=== PATIENT | male | born 1965 | race Caucasian/White ===

== ENCOUNTER 2016-10-24 04:54 | Emergency (ER) | payer OTHER ==
[~2016-10-24] VITALS: Ht 185.4 cm; Wt 127.5 kg
[~2016-10-24 04:54] MED LIST: ASPI81TA9 PO; HYDR-963 PO; IBUP800T PO; METO25TA4 PO; TAMS0.4C97 PO
--- NOTE | 2016-10-24 05:00 | ED.ADGEN ---
Past History Past Medical History: No Pertinent History, Hypertension Past Surgical History: Other Smoking: Cigarettes Alcohol Use: None Drug Use: None Adult General Chief Complaint Chief Complaint ". I am having a lot more PVC's again... I had this before... they said lay off the caffeine and the cigarettes and eating... I ve had negative stress test...I seen Dr. Aly and Dr. Giron before.. the only thing is I get worried... because my father ... and uncle had cardiac problems when they where in there 70 's... I ve been trying to quit smoking but I am a artist model.. and if I am busy.. fine.. but if it is slow.. I start smoking heavy..." HPI HPI Patient is a 51 year old male who presents with above hx and complaints. Patient has had frequent PVCs in the past. Prior ultrasounds and stress tests have been negative. Patient has follow up ultrasound. Patient does follow with . Patient does have a history of hypertension. Patient does smoke. Past has been advised to cut down on his intake of caffeine particularly his heavy use of Mountain Dew. Does have a history of coronary artery disease age 70's and father and uncle. Review of Systems Review of Systems Constitutional: Denies fever or chills [] Eyes: Denies change in visual acuity, redness, or eye pain [] HENT: Denies nasal congestion or sore throat [] Respiratory: Denies cough or shortness of breath [] Cardiovascular: No additional information not addressed in HPI [] GI: Denies abdominal pain, nausea, vomiting, bloody stools or diarrhea [] : Denies dysuria or hematuria [] Musculoskeletal: Denies back pain or joint pain [] Integument: Denies rash or skin lesions [] Neurologic: Denies headache, focal weakness or sensory changes [] Endocrine: Denies polyuria or polydipsia [] Family History Family History History of coronary artery disease Current Medications Current Medications Current Medications Medications (Trade) Dose Ordered Sig/[facility] Start Time Stop Time Status Last Admin Dose Admin Aspirin 324 mg 324 mg 1X ONCE 10/24/16 05:30 10/24/16 05:31 DC 10/24/16 05:30 324 MG Lactated Ringer's (Iv Lactated Ringers) 1,000 ml @ 1,000 mls/hr Q1H 10/24/16 05:30 10/24/16 05:51 1,000 MLS/HR See nursing for home meds Allergies Allergies Allergies Coded Allergies Type Severity Reaction Last Updated Verified No Known Drug Allergies 07/21/15 No Physical Exam Physical Exam Constitutional: no acute distress, non-toxic appearance. [] HENT: Normocephalic, atraumatic, bilateral external ears normal, oropharynx moist, no oral exudates, nose normal. [] Eyes: PERRLA, EOMI, conjunctiva normal, no discharge. [] Neck: Normal range of motion, no tenderness, supple, no stridor. [] Cardiovascular:Heart rate regular rhythm, no murmur , occasional PVC per monitor Lungs & Thorax: Bilateral breath sounds equal at apexes with scattered wheezes on auscultation [] Abdomen: Bowel sounds normal, soft, no tenderness, no masses, no pulsatile masses. Obese Skin: Warm, dry, no erythema, no rash. Tattoos Back: No tenderness, no CVA tenderness. [] Extremities: No tenderness, no cyanosis, no clubbing, ROM intact, no edema. [] No Cording noted Neurologic: Alert and oriented X 3, normal motor function, normal sensory function, no focal deficits noted. [] Psychologic: Affect anxious, judgement normal, mood normal. [] Current Patient Data Vital Signs Vital Signs Date Time Temp Pulse Resp B/P Pulse Ox O2 Delivery O2 Flow Rate FiO2 10/24/16 05:00 97.7 85 20 95 Room Air Lab Results Laboratory Tests Test 10/24/16 05:15 10/24/16 06:25 White Blood Count 8.7x10^3/uL (4.0-11.0) Red Blood Count 4.53x10^6/uL (4.30-5.70) Hemoglobin 15.6g/dL (13.0-17.5) Hematocrit 44.8% (39.0-53.0) Mean Corpuscular Volume 99fL (79-100) Mean Corpuscular Hemoglobin 34pg (25-35) Mean Corpuscular Hemoglobin Concent 35g/dL (31-37) Red Cell Distribution Width 13.3% (11.5-14.5) Platelet Count 191x10^3/uL (140-400) Neutrophils (%) (Auto) 59% (31-73) Lymphocytes (%) (Auto) 27% (24-48) Monocytes (%) (Auto) 10% (0-9) H Eosinophils (%) (Auto) 3% (0-3) Basophils (%) (Auto) 1% (0-3) Neutrophils # (Auto) 5.1x10^3uL (1.8-7.7) Lymphocytes # (Auto) 2.4x10^3/uL (1.0-4.8) Monocytes # (Auto) 0.8x10^3/uL (0.0-1.1) Eosinophils # (Auto) 0.3x10^3/uL (0.0-0.7) Basophils # (Auto) 0.1x10^3/uL (0.0-0.2) Prothrombin Time 10.0SEC (9.4-11.4) Prothrombin Time INR 1.0 (0.9-1.1) PTT 26SEC (23-33) Sodium Level 142mmol/L (136-145) Potassium Level 3.8mmol/L (3.5-5.1) Chloride Level 106mmol/L (98-107) Carbon Dioxide Level 25mmol/L (21-32) Anion Gap 11 (6-14) Blood Urea Nitrogen 15mg/dL (8-26) Creatinine 1.2mg/dL (0.7-1.3) Estimated GFR (Cockcroft-Gault) 63.6 Glucose Level 104mg/dL (70-99) H Calcium Level 8.7mg/dL (8.5-10.1) Magnesium Level 2.0mg/dL (1.8-2.4) Total Bilirubin 0.3mg/dL (0.2-1.0) Direct Bilirubin 0.1mg/dL (0.0-0.2) Aspartate Amino Transferase (AST) 18U/L (15-37) Alanine Aminotransferase (ALT) 44U/L (16-63) Alkaline Phosphatase 95U/L (46-116) Creatine Kinase 86U/L (39-308) Creatine Kinase MB (Mass) 0.8ng/mL (0.0-3.6) Creatine Kinase MB Relative Index 0.9% (0-4) Troponin I Quantitative < 0.017ng/mL (0-0.055) UI-Ckw-B-Type Natriuretic Peptide 62pg/mL (0-124) Total Protein 6.9g/dL (6.4-8.2) Albumin 3.6g/dL (3.4-5.0) Urine Collection Type Unknown Urine Color Yellow Urine Clarity Clear Urine pH 6.0 Urine Specific Benson <=1.005 Urine Protein Neg (NEG-TRACE) Urine Glucose (UA) Negmg/dL (NEG) Urine Ketones (Stick) Negmg/dL (NEG) Urine Blood Neg (NEG) Urine Nitrite Neg (NEG) Urine Bilirubin Neg (NEG) Urine Urobilinogen Dipstick 0.2mg/dL (0.2 mg/dL) Urine Leukocyte Esterase Neg (NEG) Urine RBC 0/HPF (0-2) Urine WBC 0/HPF (0-4) Urine Squamous Epithelial Cells None/LPF Urine Bacteria 0/HPF (0-FEW) Urine Opiates Screen Neg (NEG) Urine Methadone Screen Neg (NEG) Urine Barbiturates Neg (NEG) Urine Phencyclidine Screen Neg (NEG) Urine Amphetamine/Methamphetamine Neg (NEG) Urine Benzodiazepines Screen Neg (NEG) Urine Cocaine Screen Neg (NEG) Urine Cannabinoids Screen Pos (NEG) Urine Ethyl Alcohol Neg (NEG) EKG EKG I interpretation of EKG shows a sinus rhythm at 73 bpm. Does have occasional atrial premature complex. Does have an occasional PVC. There is some nonspecific anterior lateral changes but no findings acute STEMI of contralateral changes. [] Radiology/Procedures Radiology/Procedures I interpretation of chest x-ray shows no acute cardiopulmonary findings thus. Some basilar atelectasis [] Course & Med Decision Making Course & Med Decision Making Pertinent Labs and Imaging studies reviewed. (See chart for details). Stress presentation, testing and treatment plan with patient and . He will attempt to stop smoking. Will reduce caffeine intake. Continue aspirin and his maintenance meds. Will follow-up primary care. Follow-up cardiology. Return if any concerns. [] Final Impression Final Impression 1. Complaints of dysrhythmia-PVCs 2. History of hypertension 3. Tobacco use [] Problems: Dragon Disclaimer Dragon Disclaimer This electronic medical record was generated, in whole or in part, using a voice recognition dictation system. JULIO CERON MD Oct 24, 2016 05:00
[2016-10-24 05:28] LABS: BASO # 0.1 x10^3/uL (0.0-0.2); BASO % 1 % (0-3); EOS # 0.3 x10^3/uL (0.0-0.7); EOS % 3 % (0-3); HEMATOCRIT 44.8 % (39.0-53.0); HEMOGLOBIN 15.6 g/dL (13.0-17.5); LYMPH # 2.4 x10^3/uL (1.0-4.8); LYMPH % 27 % (24-48); MEAN CORPUSCULAR HEMOGLOBIN 34 pg (25-35); MEAN CORPUSCULAR HGB CONC 35 g/dL (31-37); MEAN CORPUSCULAR VOLUME 99 fL (79-100); MONO # 0.8 x10^3/uL (0.0-1.1); MONO % 10 % (0-9); NEUT # 5.1 x10^3uL (1.8-7.7); NEUT % 59 % (31-73); PLATELET COUNT 191 x10^3/uL (140-400); RED BLOOD COUNT 4.53 x10^6/uL (4.30-5.70); RED CELL DISTRIBUTION WIDTH 13.3 % (11.5-14.5); WHITE BLOOD COUNT 8.7 x10^3/uL (4.0-11.0)
[2016-10-24] MEDS ORDERED: IV RINGERS SOLUTION,LACTATED 1,000 ML IV SCH (05:30)
[2016-10-24] MEDS ORDERED: ASPIRIN 81 MG TAB.CHEW PO ONE (05:30)
[2016-10-24 05:49] LABS: ALBUMIN 3.6 g/dL (3.4-5.0); CALCIUM 8.7 mg/dL (8.5-10.1); CREATININE 1.2 mg/dL (0.7-1.3); DIRECT BILIRUBIN 0.1 mg/dL (0.0-0.2); GFR 63.6; POTASSIUM 3.8 mmol/L (3.5-5.1); TOTAL BILIRUBIN 0.3 mg/dL (0.2-1.0); TOTAL PROTEIN 6.9 g/dL (6.4-8.2)
--- NOTE | 2016-10-24 06:03 | EKG ---
[address] [address] Test Date: 2016-10-24 Test Time: 05:03:56 Pat Name: MYESHA BOONE Department: Room: Gender: M Lpn Per Diem: QUINN : 1965 Requested By: JULIO CERON Order Number: [id number] Reading MD: Measurements Intervals [place] Rate: 73 P: 32 VA: 188 QRS: 33 QRSD: 82 T: 0 QT: 366 QTc: 407 Interpretive Statements SINUS RHYTHM ATRIAL PREMATURE COMPLEX(ES) QRS(T) CONTOUR ABNORMALITY CONSIDER ANTEROLATERAL MYOCARDIAL DAMAGE POSSIBLY ABNORMAL ECG RI6.01 Unconfirmed report No previous ECG available for comparison
[2016-10-24 06:45] VITALS: BP 111/87
[2016-10-24 06:52] LABS: BARBITURATES NEG (NEG); BENZODIAZEPINES NEG (NEG); CANNABINOIDS POS (NEG); COCAINE NEG (NEG); METHADONE NEG (NEG); OPIATES NEG (NEG); PHENCYCLIDINE NEG (NEG)
[2016-10-24 06:53] LABS: AMPHETAMINE/METHAMPHETAMINE NEG (NEG); BACTERIA,URINE 0 /HPF (0-FEW); BILIRUBIN,URINE NEG (NEG); CLARITY,URINE CLEAR; COLOR,URINE YELLOW; GLUCOSE,URINE NEG (NEG); NITRITE,URINE NEG (NEG); RBC,URINE 0 /HPF (0-2); UROBILINOGEN,URINE 0.2 mg/dL (0.2 mg/dL); WBC,URINE 0 /HPF (0-4)
--- NOTE | 2016-10-24 07:10 | RAD ---
Chest, 2 views, 10/24/2016: History: Chest discomfort, shortness of breath Comparison is made to a study from 07/20/2016. The heart size is normal. The lungs are clear. There is no evidence of pleural fluid. IMPRESSION: No acute cardiopulmonary abnormality is detected.
[2016-10-24 13:29] LABS: THYROID STIM HORMONE (TSH) 3.431 uIU/mL (0.358-3.740)
== END 2016-10-24 06:54 | disposition home or self-care (01) ==
LOC: ER 05:04
DX: I49.3 Ventricular premature depolarization (principal); I10 Essential (primary) hypertension; F17.210 Nicotine dependence, cigarettes, uncomplicated
CPT/HCPCS: 36415; 71020; 80048; 80061; 80076; 80305; 81001; 82553; 83735; 83880; 84443; 84484; 85027; 85610; 85730; 93005; 96360; 99285; J7120; G0481

== ENCOUNTER → 2017-10-08 | Outpatient (CLI) | payer OTHER ==
[~2017-10-08] MED LIST changes: +ASPI-612 PO; -ASPI81TA9 PO; -IBUP800T PO; +IBUP800T19 PO
--- NOTE | 2017-10-08 14:51 | RAD ---
Right shoulder, 3 views, 10/08/2017: History: Shoulder pain No fracture or dislocation is identified. The periarticular soft tissues are unremarkable. IMPRESSION: No acute right shoulder abnormality is detected. Lumbar spine, 5 views, 10/08/2017: History: Fall, pain No fracture or dislocation is identified. The intervertebral disc spaces are well-maintained. There is minimal sclerotic change involving lower lumbar facet joints. Moderate aortic calcific plaquing is present. There is a mass in the lower pole the left kidney, apparently representing a known renal cyst. IMPRESSION: No acute lumbar spine abnormality is detected.
--- NOTE | 2017-10-09 08:47 | RAD ---
Right shoulder, 3 views, 10/08/2017: History: Shoulder pain No fracture or dislocation is identified. The periarticular soft tissues are unremarkable. IMPRESSION: No acute right shoulder abnormality is detected. Lumbar spine, 5 views, 10/08/2017: History: Fall, pain No fracture or dislocation is identified. The intervertebral disc spaces are well-maintained. There is minimal sclerotic change involving lower lumbar facet joints. Moderate aortic calcific plaquing is present. There is a mass in the lower pole the left kidney, apparently representing a known renal cyst. IMPRESSION: No acute lumbar spine abnormality is detected. DICTATED AND SIGNED BY: NERI MENDENHALL MD DATE: 10/08/17 1444 MTDD
== END | disposition home or self-care (01) ==
LOC: DXRAD 11:37
PROVIDERS: ATTEND Family Medicine
DX: M54.5 Low back pain (principal); M25.511 Pain in right shoulder; N28.1 Cyst of kidney, acquired; I70.0 Atherosclerosis of aorta; Z91.81 History of falling
CPT/HCPCS: 72110; 73030

== ENCOUNTER 2017-10-15 20:22 | Emergency (ER) | payer OTHER ==
[~2017-10-15] VITALS: Ht 185.4 cm; Wt 120.2 kg
[2017-10-15 20:22] VITALS: BP 141/79
--- NOTE | 2017-10-15 20:24 | ED.ADGEN ---
Past History Past Medical History: No Pertinent History, Hypertension Past Surgical History: Other Smoking: Cigarettes Alcohol Use: None Drug Use: Marijuana Adult General Chief Complaint Chief Complaint " I tripped over the cat...".. " [place]".. and went down on this Lt. hand and did something to this Lt finger..." HPI HPI Patient is a 52 year old male who presents with above hx and complaints FOOSH type injury to left hand. Patient's pain is localized in the left 5th finger and hand. Is obvious fracture at the base of fifth finger. Distal neurovascular intact. Capillary refill less than 2 seconds. Patient Is able to flex and extend but there is pain at the base of the finger . No other injuries reported. There is obvious edema. Patient is right-hand dominant. Fat [place] was not injured. Review of Systems Review of Systems Constitutional: Denies fever or chills [] Eyes: Denies change in visual acuity, redness, or eye pain [] HENT: Denies nasal congestion or sore throat [] Respiratory: Denies cough or shortness of breath [] Cardiovascular: No additional information not addressed in HPI [] GI: Denies abdominal pain, nausea, vomiting, bloody stools or diarrhea [] : Denies dysuria or hematuria [] Musculoskeletal: Denies back pain or joint pain, except [left fifth finger fracture Integument: Denies rash or skin lesions [] Neurologic: Denies headache, focal weakness or sensory changes [] Endocrine: Denies polyuria or polydipsia [] All other systems were reviewed and found to be within normal limits, except as documented in this note. Family History Family History Noncontributory Current Medications Current Medications Current Medications Medications (Trade) Dose Ordered Sig/[facility] Start Time Stop Time Status Last Admin Dose Admin Hydrocodone Bitartrate/ Ibuprofen (Vicoprofen 7.5-200) 2 tab 1X ONCE 10/15/17 21:00 10/15/17 21:01 DC 10/15/17 21:20 2 TAB Allergies Allergies Allergies Coded Allergies Type Severity Reaction Last Updated Verified No Known Drug Allergies 07/21/15 No Physical Exam Physical Exam Constitutional: Well developed, well nourished, no acute distress, non-toxic appearance. []Glasses HENT: Normocephalic, atraumatic, bilateral external ears normal, oropharynx moist, no oral exudates, nose normal. [] Eyes: PERRLA, EOMI, conjunctiva normal, no discharge. [] Neck: Normal range of motion, no tenderness, supple, no stridor. [] Cardiovascular:Heart rate regular rhythm, no murmur [] Lungs & Thorax: Bilateral breath sounds equal apex with scattered wheezes on auscultation [] Abdomen: Bowel sounds normal, soft, no tenderness, no masses, no pulsatile masses. [] Skin: Warm, dry, no erythema, no rash. [] Back: No tenderness, no CVA tenderness. [] Extremities: No tenderness, no cyanosis, no clubbing, ROM intact, no edema. [] Septic findings in the left fifth finger as per history of present illness Neurologic: Alert and oriented X 3, normal motor function, normal sensory function, no focal deficits noted. [] Psychologic: Affect normal, judgement normal, mood normal. [] Current Patient Data Vital Signs Vital Signs Date Time Temp Pulse Resp B/P (MAP) Pulse Ox O2 Delivery O2 Flow Rate FiO2 10/15/17 20:22 97.9 95 20 95 Room Air EKG EKG [] Radiology/Procedures Radiology/Procedures My interpretation of hand x-ray shows fracture o left fifth finger. Post gentle traction shows some and improved alignment with siena tape splint. Course & Med Decision Making Course & Med Decision Making Pertinent Labs and Imaging studies reviewed. (See chart for details). Gentle traction. Splint applied. Distal neurovascular intact after splint application Ice, elevation, rest, splint, and take Tylenol and ibuprofen for pain for marked pain take Vicoprofen. Do not place rings on left hand. Follow-up orthopedics. [] Final Impression Final Impression 1. Lt hand Injury[]- fractured base left fifth finger Problems: Dragon Disclaimer Dragon Disclaimer This electronic medical record was generated, in whole or in part, using a voice recognition dictation system. JULIO CERON MD Oct 15, 2017 20:24
[2017-10-15] MEDS ORDERED: HYDR-79 PO (20:48)
[2017-10-15] MEDS ORDERED: HYDROcodon/IBUPROFEN 7.5/200MG 1 TAB TABLET PO ONE (21:00)
--- NOTE | 2017-10-16 08:12 | RAD ---
Left hand, 3 views, 10/15/2017: History: Fall, pain, swelling There is a slightly comminuted fracture of the proximal aspect of the proximal phalanx of the little finger. There is mild impaction of the fracture fragments at the fracture site moderate dorsal and mild ulnar angulation of the distal fracture fragment. A fracture line appears to involve the proximal articular surface of the proximal phalanx. No other fracture or dislocation is identified. IMPRESSION: Angulated fracture of the proximal phalanx of the little finger.
--- NOTE | 2017-10-16 08:15 | RAD ---
Left hand, 3 views, 10/15/2017, 8:55 PM: History: Post splint evaluation Comparison is made to the study of earlier the same day. The comminuted fracture of the proximal aspect of the proximal phalanx of the little finger is again noted. Dorsal angulation of the distal fracture fragment at the fracture site has been reduced. There is a tiny radiopaque foreign body within the soft tissues along the ulnar and palmar aspects of the fifth metacarpal which is unchanged and may be old. IMPRESSION: Improved alignment of the proximal phalangeal fracture of the little finger.
== END 2017-10-15 21:30 | disposition home or self-care (01) ==
LOC: ER 20:22
DX: S62.617A Displaced fracture of proximal phalanx of left little finger, initial encounter for closed fracture (principal); I10 Essential (primary) hypertension; F17.210 Nicotine dependence, cigarettes, uncomplicated; F12.10 Cannabis abuse, uncomplicated; W01.0XXA Fall on same level from slipping, tripping and stumbling without subsequent striking against object, initial encounter; Y93.89 Activity, other specified; Y99.8 Other external cause status; Y92.89 Other specified places as the place of occurrence of the external cause
CPT/HCPCS: 29130; 73130; 99284

== ENCOUNTER → 2018-11-04 | Outpatient (CLI) | payer SELFPAY ==
[~2018-11-04] MED LIST changes: +HYDR-1179 PO; +HYDR-3136 PO; -HYDR-963 PO
--- NOTE | 2018-11-04 15:01 | RAD ---
DATE: 11/04/2018 EXAM: DIGITAL DIAGNOSTIC BILATERAL, BREAST LEFT HISTORY: Left breast lump COMPARISON: Baseline study This study was interpreted with the benefit of Computerized Aided Detection (CAD). Breast Density: SCATTERED The breast parenchyma shows scattered fibroglandular densities. Breast parenchyma level B. FINDINGS: A BB was placed over the area of palpable concern in the lateral left breast. No underlying mass is seen. No suspicious breast densities or calcifications are identified in either breast. Moderate sized right axillary lymph nodes are noted demonstrating normal fatty denice. Left breast ultrasound, 11/04/2018: A targeted ultrasound exam of the left breast was performed from the 3:00 to the 6:00 regions, including the area of reported concern at 4:00. Fibroglandular shadows are heterogeneous. No mass or abnormal fluid collection is seen. The patient reports that the area of palpable concern has been regressing. IMPRESSION: 1. No mammographic abnormality is detected. 2. The targeted ultrasound exam of the left breast revealed no specific abnormality. Clinical surveillance is suggested. BI-RADS CATEGORY: 1 NEGATIVE RECOMMENDED FOLLOW-UP: CLIN FOLLOW UP IMAGING CLINICALLY INDICATED PQRS compliance statement: Patient information was entered into a reminder system with a target due date for the next mammogram. Mammography is a sensitive method for finding small breast cancers, but it does not detect them all and is not a substitute for careful clinical examination. A negative mammogram does not negate a clinically suspicious finding and should not result in delay in biopsying a clinically suspicious abnormality. "Our facility is accredited by the [employer] [place] Mammography Program."
== END | disposition home or self-care (01) ==
LOC: MAMMO 13:19
PROVIDERS: ATTEND Physician Assistant
DX: R92.8 Other abnormal and inconclusive findings on diagnostic imaging of breast (principal)
CPT/HCPCS: 76641; 77066

== ENCOUNTER 2019-01-14 08:43 | Emergency (ER) | payer SELFPAY ==
[2019-01-14] MEDS ORDERED: IV NORMAL SALINE 1,000ML 1,000 ML IV SCH (08:54)
[2019-01-14] MEDS ORDERED: ONDANSETRON PF 4 MG/2 ML VIAL. IV ONE ×2 (09:00→12:30)
[2019-01-14 09:13] LABS: BASO # 0.1 x10^3/uL (0.0-0.2); BASO % 1 % (0-3); EOS # 0.2 x10^3/uL (0.0-0.7); EOS % 2 % (0-3); HEMATOCRIT 48.7 % (39.0-53.0); LYMPH # 1.5 x10^3/uL (1.0-4.8); LYMPH % 17 % (24-48); MEAN CORPUSCULAR HEMOGLOBIN 34 pg (25-35); MEAN CORPUSCULAR HGB CONC 35 g/dL (31-37); MEAN CORPUSCULAR VOLUME 97 fL (79-100); MONO # 0.8 x10^3/uL (0.0-1.1); MONO % 9 % (0-9); NEUT # 6.6 x10^3uL (1.8-7.7); NEUT % 73 % (31-73); PLATELET COUNT 286 x10^3/uL (140-400); RED BLOOD COUNT 5.02 x10^6/uL (4.30-5.70); RED CELL DISTRIBUTION WIDTH 13.1 % (11.5-14.5)
--- NOTE | 2019-01-14 09:21 | PHYS DOC ---
Past History Past Medical History: High Cholesterol, Hypertension Past Surgical History: Other Smoking: Cigarettes Alcohol Use: None Drug Use: Marijuana Adult General Chief Complaint Chief Complaint: ABDOMINAL PAIN HPI HPI Patient is a 53 year old male who presents with lower abdominal pain. Patient states that his symptoms started 5 days ago and have progressively worsened. States his pain became constant today. States it is sharp and severe. States that he has not been able to urinate or pass much stool since onset of symptoms. Has history of kidney stones and is concerned that it could be a kidney stone. Patient also has documented history of diverticulitis. States that he has nausea but no vomiting and has not had any fevers. Has not taken any medicine today for symptoms.[] Review of Systems Review of Systems Constitutional: Denies fever or chills [] Eyes: Denies change in visual acuity, redness, or eye pain [] HENT: Denies nasal congestion or sore throat [] Respiratory: Denies cough or shortness of breath [] Cardiovascular: Denies chest pain or edema[] GI: Abdominal pain, nausea, denies vomiting, bloody stools or diarrhea [] : Oliguria[] Musculoskeletal: Denies back pain or joint pain [] Integument: Denies rash or skin lesions [] Neurologic: Denies headache, focal weakness or sensory changes [] All other systems were reviewed and found to be within normal limits, except as documented in this note. Current Medications Current Medications Current Medications Medications (Trade) Dose Ordered Sig/Brandon Start Time Stop Time Status Last Admin Dose Admin Morphine Sulfate (Morphine 4mg Syringe) 4 mg PRN Q15MIN PRN 01/14/19 09:00 01/15/19 08:59 UNV Ondansetron HCl (Zofran) 4 mg 1X ONCE 01/14/19 09:00 01/14/19 09:01 UNV Sodium Chloride 1,000 ml @ 1,000 mls/hr Q1H 01/14/19 08:54 01/14/19 09:53 UNV Allergies Allergies Allergies Coded Allergies Type Severity Reaction Last Updated Verified No Known Drug Allergies 07/21/15 No Physical Exam Physical Exam Constitutional: Alert, afebrile, appears diaphoretic and in moderate to severe discomfort. [] HENT: Normocephalic, atraumatic, bilateral external ears normal, oropharynx moist, no oral exudates, nose normal. [] Eyes: PERRLA, EOMI, conjunctiva normal, no discharge. [] Neck: Normal range of motion, no tenderness, supple, no stridor. [] Cardiovascular:Heart rate regular rhythm, no murmur [] Lungs & Thorax: Bilateral breath sounds clear to auscultation [] Abdomen: Bowel sounds normal, soft, suprapubic and bilateral lower quadrant tenderness to palpation with mild guarding, no masses, no pulsatile masses. [] Skin: Warm, dry, no erythema, no rash. [] Back: No tenderness, no CVA tenderness. [] Extremities: No tenderness, no cyanosis, no clubbing, ROM intact, no edema. [] Neurologic: Alert and oriented X 3, normal motor function, normal sensory function, no focal deficits noted. [] Current Patient Data Vital Signs Vital Signs Date Time Temp Pulse Resp B/P (MAP) Pulse Ox O2 Delivery O2 Flow Rate FiO2 01/14/19 10:31 24 94 01/14/19 08:50 97.7 87 Room Air Lab Results Laboratory Tests Test 01/14/19 09:04 01/14/19 10:20 White Blood Count 9.0 x10^3/uL Red Blood Count 5.02 x10^6/uL Hemoglobin 17.0 g/dL Hematocrit 48.7 % Mean Corpuscular Volume 97 fL Mean Corpuscular Hemoglobin 34 pg Mean Corpuscular Hemoglobin Concent 35 g/dL Red Cell Distribution Width 13.1 % Platelet Count 286 x10^3/uL Neutrophils (%) (Auto) 73 % Lymphocytes (%) (Auto) 17 % Monocytes (%) (Auto) 9 % Eosinophils (%) (Auto) 2 % Basophils (%) (Auto) 1 % Neutrophils # (Auto) 6.6 x10^3uL Lymphocytes # (Auto) 1.5 x10^3/uL Monocytes # (Auto) 0.8 x10^3/uL Eosinophils # (Auto) 0.2 x10^3/uL Basophils # (Auto) 0.1 x10^3/uL Sodium Level 139 mmol/L Potassium Level 4.3 mmol/L Chloride Level 104 mmol/L Carbon Dioxide Level 24 mmol/L Anion Gap 11 Blood Urea Nitrogen 15 mg/dL Creatinine 1.3 mg/dL Estimated GFR (Cockcroft-Gault) 57.5 BUN/Creatinine Ratio 12 Glucose Level 118 mg/dL Calcium Level 9.5 mg/dL Total Bilirubin 0.3 mg/dL Aspartate Amino Transf (AST/SGOT) 23 U/L Alanine Aminotransferase (ALT/SGPT) 43 U/L Alkaline Phosphatase 90 U/L Total Protein 7.5 g/dL Albumin 3.5 g/dL Albumin/Globulin Ratio 0.9 Urine Collection Type Unknown Urine Color Beatriz Urine Clarity Clear Urine pH 6.0 Urine Specific Zwingle 1.020 Urine Protein Trace Urine Glucose (UA) Neg mg/dL Urine Ketones (Stick) Trace mg/dL Urine Blood Neg Urine Nitrite Neg Urine Bilirubin Neg Urine Urobilinogen Dipstick 0.2 mg/dL Urine Leukocyte Esterase Neg Urine RBC 0 /HPF Urine WBC 0 /HPF Urine Squamous Epithelial Cells Occ /LPF Urine Bacteria 0 /HPF Urine Mucus Marked /LPF Current Medications Medications (Trade) Dose Ordered Sig/Brandon Route PRN Reason Start Time Stop Time Status Last Admin Dose Admin Morphine Sulfate (Morphine 4mg Syringe) 4 mg PRN Q15MIN PRN IV/SQ PAIN GREATER THAN 3/10 01/14/19 09:00 01/15/19 08:59 01/14/19 10:31 Sodium Chloride 1,000 ml @ 1,000 mls/hr Q1H IV 01/14/19 08:54 01/14/19 09:53 DC 01/14/19 09:24 Ondansetron HCl (Zofran) 4 mg 1X ONCE IV 01/14/19 09:00 01/14/19 09:25 DC 01/14/19 09:24 Metronidazole 100 ml @ 100 mls/hr 1X ONCE IV 01/14/19 10:15 01/14/19 11:14 DC Levofloxacin/ Dextrose (Levaquin Per Pharmacy) 1 each PRN DAILY PRN MC SEE COMMENTS 01/14/19 10:15 Levofloxacin/ Dextrose 150 ml @ 150 mls/hr 1X ONCE IV 01/14/19 10:30 01/14/19 11:29 01/14/19 10:34 EKG EKG Not performed[] Radiology/Procedures Radiology/Procedures [address] [address] IMAGING REPORT Signed PATIENT: MYESHA BOONE ACCOUNT: [id number] : 1965 LOCATION: ER AGE: 53 SEX: M EXAM STATUS: REG ER ORD. PHYSICIAN: URSZULA PATEL MD REASON: abdominal pain, hx of kidney stones PROCEDURE: CT ABDOMEN PELVIS WO CONTRAST Examination: CT of the abdomen pelvis without contrast HISTORY: History of abdominal pain, history of renal stones COMPARISON: None available TECHNIQUE: Axial CT images of the abdomen pelvis were performed without contrast. Coronal and sagittal reformats are performed. Exposure: One or more of the following individualized dose reduction techniques were utilized for this examination: 1. Automated exposure control 2. Adjustment of the mA and/or kV according to patient size 3. Use of iterative reconstruction technique FINDINGS: Minimal bibasilar lung atelectasis is identified. Multiple foci of free air identified in the abdomen. The evaluation of the solid organs is limited due to lack of IV contrast. The evaluation of bowel is limited due to lack of oral contrast. There is diffuse decreased attenuation noted in the liver likely hepatic steatosis. The visualized spleen, adrenals grossly appears unremarkable. The gallbladder is mildly distended. The stomach is mildly distended. The visualized pancreas grossly appears unremarkable. Minimal fluid distended small bowel loops. The appendix is normal. Feces and gas noted in the colon. Multiple sigmoid colon diverticulosis. There is moderate inflammatory fat stranding identified about the sigmoid colon likely acute diverticulitis. There is mild thickened appearance of the wall of the urinary bladder with surrounding mild degenerative fat stranding. Punctate 4 mm calculus identified in the right kidney. There is a 7.3 cm cystic structure identified in the left kidney probably a cyst however evaluation limited without IV contrast Mild degenerative changes lumbar spine. IMPRESSION: 1. Pneumoperitoneum. Findings consistent with acute diverticulitis of the sigmoid colon. 2. Moderate inflammatory fat stranding identified about the sigmoid colon and the urinary bladder probably due to underlying sigmoid colon diverticulitis or cystitis. 3. 4 mm right renal calculus. 7.3 cm cystic structure identified in the left kidney probably a cyst. However evaluation limited without IV contrast. informed of the critical findings at 10:25 AM same day exam. Electronically signed by: Abdi Juárez MD (01/14/2019 10:26 AM) [id number] DICTATED AND SIGNED BY: ABDI JUÁREZ MD DATE: 01/14/19 1026 CC: URSZULA PATEL MD; KAYLYNN VALERIO MD ~ [] Course & Med Decision Making Course & Med Decision Making Pertinent Labs and Imaging studies reviewed. (See chart for details) The patient was started on IV morphine, Zofran, and IV fluids. CT imaging confirms acute diverticulitis with pneumoperitoneum. Started on Flagyl and Levaquin IV. Patient requires a higher level of care than can be provided at [facility]. I initially contacted [facility], however they currently do not have any monitored or ICU beds available for the patient at this time and were unable to accept. I contacted [facility] transfer line and spoke with Dr. Loza. Dr. Loza accepted patient for transfer. Patient will be transferred by ground ambulance to [facility]. Spoke patient regarding plan of care and he was in agreement at time of disposition.[] Dragon Disclaimer Dragon Disclaimer This electronic medical record was generated, in whole or in part, using a voice recognition dictation system. Departure Departure: Impression: Primary Impression: Acute diverticulitis Additional Impression: Pneumoperitoneum Disposition: XFER SHT-TRM HOSP Condition: GUARDED Referrals: KAYLYNN VALERIO MD (PCP) Problem Qualifiers URSZULA PATEL MD Jan 14, 2019 09:21
[2019-01-14] MEDS: MORPHINE SULFATE 4 MG/ML DISP.SYRIN. IV/SQ PRN ×2 (09:24→10:31)
[2019-01-14 09:28] LABS: ALBUMIN 3.5 g/dL (3.4-5.0); ALBUMIN/GLOBULIN RATIO 0.9 (1.0-1.7); CALCIUM 9.5 mg/dL (8.5-10.1); CREATININE 1.3 mg/dL (0.7-1.3); GFR 57.5; POTASSIUM 4.3 mmol/L (3.5-5.1); TOTAL BILIRUBIN 0.3 mg/dL (0.2-1.0); TOTAL PROTEIN 7.5 g/dL (6.4-8.2)
--- NOTE | 2019-01-14 10:29 | RAD ---
Examination: CT of the abdomen pelvis without contrast HISTORY: History of abdominal pain, history of renal stones COMPARISON: None available TECHNIQUE: Axial CT images of the abdomen pelvis were performed without contrast. Coronal and sagittal reformats are performed. Exposure: One or more of the following individualized dose reduction techniques were utilized for this examination: 1. Automated exposure control 2. Adjustment of the mA and/or kV according to patient size 3. Use of iterative reconstruction technique FINDINGS: Minimal bibasilar lung atelectasis is identified. Multiple foci of free air identified in the abdomen. The evaluation of the solid organs is limited due to lack of IV contrast. The evaluation of bowel is limited due to lack of oral contrast. There is diffuse decreased attenuation noted in the liver likely hepatic steatosis. The visualized spleen, adrenals grossly appears unremarkable. The gallbladder is mildly distended. The stomach is mildly distended. The visualized pancreas grossly appears unremarkable. Minimal fluid distended small bowel loops. The appendix is normal. Feces and gas noted in the colon. Multiple sigmoid colon diverticulosis. There is moderate inflammatory fat stranding identified about the sigmoid colon likely acute diverticulitis. There is mild thickened appearance of the wall of the urinary bladder with surrounding mild degenerative fat stranding. Punctate 4 mm calculus identified in the right kidney. There is a 7.3 cm cystic structure identified in the left kidney probably a cyst however evaluation limited without IV contrast Mild degenerative changes lumbar spine. IMPRESSION: 1. Pneumoperitoneum. Findings consistent with acute diverticulitis of the sigmoid colon. 2. Moderate inflammatory fat stranding identified about the sigmoid colon and the urinary bladder probably due to underlying sigmoid colon diverticulitis or cystitis. 3. 4 mm right renal calculus. 7.3 cm cystic structure identified in the left kidney probably a cyst. However evaluation limited without IV contrast. informed of the critical findings at 10:25 AM same day exam. Electronically signed by: Abdi Juárez MD (01/14/2019 10:26 AM) [id number]
[2019-01-14 10:46] LABS: BACTERIA,URINE 0 /HPF (0-FEW); BILIRUBIN,URINE NEG (NEG); CLARITY,URINE CLEAR; COLOR,URINE AMBER; GLUCOSE,URINE NEG (NEG); NITRITE,URINE NEG (NEG); RBC,URINE 0 /HPF (0-2); UROBILINOGEN,URINE 0.2 mg/dL (0.2 mg/dL); WBC,URINE 0 /HPF (0-4)
[2019-01-14 10:47] LABS: SQUAMOUS EPITHELIAL CELL,UR OCC /LPF
[2019-01-14 12:28] VITALS: BP 151/87
== END 2019-01-14 12:15 | disposition short-term general hospital (02) ==
LOC: ER 08:43
DX: K57.32 Diverticulitis of large intestine without perforation or abscess without bleeding (principal); K66.8 Other specified disorders of peritoneum; N20.0 Calculus of kidney
CPT/HCPCS: 36415; 74176; 80053; 81001; 85025; 96365; 96367; 96375; 96376; 99285; J1956; J2270; J2405; J3490; J7030

== ENCOUNTER → 2019-08-18 | Outpatient (CLI) | payer BC ==
--- NOTE | 2019-08-18 17:50 | RAD ---
EXAM: Soft tissue ultrasound, perianal soft tissues. HISTORY: Palpable perianal nodule. COMPARISON: None. FINDINGS: Sonographic evaluation of the perianal site of concern was performed. A hypoechoic immediately subcutaneous tract extends from the perianal region to the posterior margin of the scrotum. It measures 5.6 cm in length, and 1.6 x 0.7 cm short axis. A small tract extends to the perianal skin as seen on image 6. IMPRESSION: 1. A subcutaneous tract extends from a perianal skin lesion 5.6 cm anteriorly to the posterior scrotum. It measures 1.6 x 0.7 cm short axis. Electronically signed by: Chantal Reed MD (08/18/2019 5:47 PM) [facility]
== END | disposition home or self-care (01) ==
LOC: US 15:10
PROVIDERS: ATTEND Family Medicine
DX: L98.8 Other specified disorders of the skin and subcutaneous tissue (principal)
CPT/HCPCS: 76881

== ENCOUNTER → 2019-11-25 | Outpatient (CLI) | payer BC ==
--- NOTE | 2019-11-26 08:40 | RAD ---
MR#: [id number] Date of Study: 11/25/2019 Ordering Physician: SANG GIRON, Referring Physician: SANG GIRON, Tech: Estefanía Lopez RVT,[facility] APPROVED REPORT Patient Location: OUT-PATIENT Indications Claudication: Grayscale images of the bilateral lower extremity arterial vessels demonstrate mild diffuse intimal h yperplasia and calcification. On the right side based on spectral waveforms and velocities the proxi mal to mid SFA is occluded with monophasic waveforms distally. Right below-knee vessels have severel y diminished velocities likely due to proximal obstruction but there is three-vessel runoff. On the left side no significant changes to suggest significant disease. Triphasic and biphasic waveforms no jodi with three-vessel runoff. Risk Factors Hypertriglyceridemia VELOCITY AND DOPPLER WAVEFORM ANALYSIS RIGHT cm/secWaveformSeverity LEFT cm/secWaveform Severity pCFA 99.5TriphasicpCFA 164.1Triphasic Prof Fem Art. 111.0TriphasicProf Fem Art. 122.0Triphasic Fem Art Prox. OccludedFem Art Prox. 88.9Triphasic Fem Art Mid. OccludedFem Art Mid. 101.2Triphasic Fem Art Dist. 58.4MonophasicFem Art Dist. 63.6Triphasic Pop Art(Fossa) 16.1MonophasicPop Art(AK) 68.8Triphasic STITCHER AROUND Prox. 29.7MonophasicPTA Prox. 60.2Biphasic STITCHER AROUND Dist. 24.8MonophasicPTA Dist. 64.2Biphasic Per Art Prox. 11.6MonophasicPer Art Prox. 36.1Biphasic ANGELA Prox. 12.0MonophasicATA Prox. 43.0Biphasic DPA 15MonophasicDPA 45Biphasic Critical Notification Critical Value: No <Conclusion> 1. 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 Signed by : Sang Giron, Electronically Approved : 11/26/2019 08:39:41
--- NOTE | 2019-11-26 08:41 | RAD ---
MR#: [id number] Date of Study: 11/25/2019 Ordering Physician: SANG GIRON, Referring Physician: SANG GIRON, Tech: Estefanía Lopez APPROVED REPORT Patient Location: OUT-PATIENT Exam Type: Ankle to Brachial Index Indications Claudication: Resting right LUH is 0.9 with a brachial pressure of 136 and a posterior tibial pressure of 124, left sided LUH 1.2 has a brachial pressure of 126 with a posterior tibial pressure of 155 Pressures/Indices RightABI LeftABI Brachial 136mmHgBrachial 126mmHg Ankle(PT) 124mmHgAnkle(PT) 155mmHg Ankle(DP) 121mmHgAnkle(DP) 169mmHg Critical Notification Critical Value: No <Conclusion> 1. Mildly abnormal LUH on the right side with near normal LUH on the left side Signed by : Sang Giron, Electronically Approved : 11/26/2019 08:40:44
== END | disposition home or self-care (01) ==
LOC: US 13:03
PROVIDERS: ATTEND Internal Medicine Cardiovascular Disease
DX: I70.291 Other atherosclerosis of native arteries of extremities, right leg (principal)
CPT/HCPCS: 93922; 93925

== ENCOUNTER 2019-12-19 15:23 | Emergency (ER) | payer BC ==
[~2019-12-19] VITALS: Ht 185.4 cm; Wt 125.6 kg
[~2019-12-19 15:23] MED LIST changes: -ASPI-612 PO; +ASPI-889 PO
--- NOTE | 2019-12-19 15:59 | PHYS DOC ---
Past History Past Medical History: GERD, Hypertension Past Surgical History: No Surgical History Smoking: Cigarettes Additional Smoking Information: pack a day Alcohol Use: None Drug Use: None General Adult EDM: Chief Complaint: SKIN PROBLEM HPI: HPI: 54-year-old male presents with perineal mass. The patient has had an enlarging and shrinking mass in the right inferior scrotum for several months. He initially had evaluated by ultrasound and had a surgical consultation. They thought it was scar tissue no surgery was scheduled. The patient has been having enlarging of this area the last several days. It is more painful. He has had some significant drainage he describes as pus and blood yesterday. He denies fever chills. He has no other complaints at this time. Review of Systems: Review of Systems: Constitutional: Denies fever or chills Eyes: Denies change in visual acuity HENT: Denies nasal congestion or sore throat Respiratory: Denies cough or shortness of breath Cardiovascular: Denies chest pain or edema GI: Denies abdominal pain, nausea, vomiting, bloody stools or diarrhea : Scrotal mass Musculoskeletal: Denies back pain or joint pain Integument: Denies rash Neurologic: Denies headache, focal weakness or sensory changes Endocrine: Denies polyuria or polydipsia Lymphatic: Denies swollen glands Psychiatric: Denies depression or anxiety Heart Score: Risk Factors: Risk Factors: DM, Current or recent (<one month) smoker, HTN, HLP, family history of CAD, obesity. Risk Scores: Score 0 - 3: 2.5% MACE over next 6 weeks - Discharge Home Score 4 - 6: 20.3% MACE over next 6 weeks - Admit for Clinical Observation Score 7 - 10: 72.7% MACE over next 6 weeks - Early Invasive Strategies Allergies: Allergies: Allergies Coded Allergies Type Severity Reaction Last Updated Verified No Known Drug Allergies 07/21/15 No Physical Exam: PE: Constitutional: Well developed, well nourished, no acute distress, non-toxic appearance. [] HENT: Normocephalic, atraumatic, bilateral external ears normal, oropharynx moist, no oral exudates, nose normal. [] Eyes: PERRLA, EOMI, conjunctiva normal, no discharge. [] Neck: Normal range of motion, no tenderness, supple, no stridor. [] Cardiovascular:Heart rate regular rhythm, no murmur [] Lungs & Thorax: Bilateral breath sounds clear to auscultation [] Abdomen: Bowel sounds normal, soft, no tenderness, no masses, no pulsatile masses. [] Skin: Warm, dry, no erythema, no rash. [] Back: No tenderness, no CVA tenderness. [] Extremities: No tenderness, no cyanosis, no clubbing, ROM intact, no edema. [] Neurologic: Alert and oriented X 3, normal motor function, normal sensory function, no focal deficits noted. [] Psychologic: Affect normal, judgement normal, mood normal. : right sided scrotal mass inferior to the testicle, 1cm x1.5cm x5cm. No current drainage, no overlying cellulitis [] Current Patient Data: Vital Signs: Vital Signs Date Time Temp Pulse Resp B/P (MAP) Pulse Ox O2 Delivery O2 Flow Rate FiO2 12/19/19 15:42 98.0 92 20 143/91 (108) 97 Room Air EKG: EKG: [] Radiology/Procedures: Radiology/Procedures: [] Impressions: Examination: Ultrasound soft tissue, perianal History: History of palpable perianal nodule COMPARISON: 08/18/2019. Findings/ impression: There is a hypoechoic complex fluid collection/mass and tract to the skin measuring 5.8 x 2.2 x 1.2 cm with increased vascularity about the lesion could be complex mass with sinus tract or abscess in the perianal region, slightly increased in size. Recommend CT pelvis with IV contrast for further evaluation. Electronically signed by: Abdi Juárez MD (12/19/2019 4:27 PM) [id number] DICTATED AND SIGNED BY: ABDI JUÁREZ MD DATE: 12/19/19 1627 CC: MAI ULLOA DO; KAYLYNN VALERIO MD ~ [facility] Compliance Statement: One or more of the following individualized dose reduction techniques were utilized for this examination: 1. Automated exposure control 2. Adjustment of the mA and/or kV according to patient size 3. Use of iterative reconstruction technique CT PELVIS W/CONTRAST 12/19/2019 4:45 PM Indication: Perirectal mass COMPARISON: Ultrasound 12/19/2019 TECHNIQUE: Multiple axial CT images of the pelvis are obtained after intravenous administration of nonionic contrast. Coronal and sagittal reformats are provided. FINDINGS: There is a 4.5 or 1.7 x 2.4 cm rim-enhancing collection along the posterior margin of the right scrotum with associated skin thickening. Extensive edema extending to the right perineum. There is no involvement of the anus, internal or external anal sphincters. The testicles appear separate from this process as does the penis. No significant pathologically enlarged pelvic lymph nodes are identified. Inferior pole left renal cyst measures 7.0 cm. Small large bowel are normal in caliber. Mild colonic diverticulosis without adjacent inflammation. Appendix is normal in appearance. Urinary bladder is within normal limits given degree of distention. Prostate and seminal vesicles are normal. No suspicious osseous normality is identified. IMPRESSION: 1. Rim-enhancing fluid collection is identified along the posterior right scrotal wall with extension to the perineum without involvement of the anus. Findings are suspicious for abscess development although there is no gas identified within this collection. Correlate with any localized signs and symptoms of infection. Overlying cellulitis is considered. Electronically signed by: Miriam Hardy MD (12/19/2019 5:34 PM) [facility] DICTATED AND SIGNED BY: MIRIAM HARDY MD DATE: 12/19/19 173 CC: MAI ULLOA DO; KAYLYNN VALERIO MD ~ Course & Med Decision Making: Course & Med Decision Making Pertinent Labs and Imaging studies reviewed. (See chart for details) The patient's labs are unremarkable. His ultrasound suggests possible abscess. There is a complex fluid collection. See report for more details. CT was suggested. CT also suggests likely infection and possible abscess though it is not conclusive. The patient has had this for a long time. It has been spontaneously draining on its own. It had drainage yesterday. Since that has a tract it is unlikely to be resolved without surgery. And was seen evaluating and making a larger incision. I will discharge him with some pain medication for his discomfort. I have strongly advised him that he follow-up with his surgeon and get this fixed. He is stable for discharge at this time. [] Dragon Disclaimer: Dragjuanita Disclaimer: This electronic medical record was generated, in whole or in part, using a voice recognition dictation system. Departure Departure: Impression: Primary Impression: Mass of perianal area Disposition: 01 HOME/RESIDENCE PRIOR TO ADM Condition: STABLE Referrals: KAYLYNN VALERIO MD (PCP) Patient Instructions: Abscess, Perineal Scripts Hydrocodone Bit/Acetaminophen (NORCO 5-325 TABLET) 1 Each Tablet 1 TAB PO PRN Q6HRS PRN for PAIN, #14 TAB 0 Refills Prov: MAI ULLOA DO 12/19/19 Sulfamethoxazole/Trimethoprim (BACTRIM DS TABLET) 1 Each Tablet 1 TAB PO BID for abscess for 7 Days, #14 TAB 0 Refills Prov: MAI ULLOA DO 12/19/19 MAI ULLOA DO December 19, 2019 15:59
--- NOTE | 2019-12-19 16:30 | RAD ---
Examination: Ultrasound soft tissue, perianal History: History of palpable perianal nodule COMPARISON: 08/18/2019. Findings/ impression: There is a hypoechoic complex fluid collection/mass and tract to the skin measuring 5.8 x 2.2 x 1.2 cm with increased vascularity about the lesion could be complex mass with sinus tract or abscess in the perianal region, slightly increased in size. Recommend CT pelvis with IV contrast for further evaluation. Electronically signed by: Abdi Juárez MD (12/19/2019 4:27 PM) [id number]
[2019-12-19] MEDS ORDERED: IOHEXOL 300 MG/ML 75 ML VIAL. IV ONE (17:00)
[2019-12-19 17:20] LABS: BASO # 0.1 x10^3/uL (0.0-0.2); BASO % 1 % (0-3); EOS # 0.1 x10^3/uL (0.0-0.7); EOS % 1 % (0-3); HEMATOCRIT 47.1 % (39.0-53.0); HEMOGLOBIN 16.3 g/dL (13.0-17.5); LYMPH # 1.9 x10^3/uL (1.0-4.8); LYMPH % 16 % (24-48); MEAN CORPUSCULAR HEMOGLOBIN 35 pg (25-35); MEAN CORPUSCULAR HGB CONC 35 g/dL (31-37); MEAN CORPUSCULAR VOLUME 99 fL (79-100); MONO % 8 % (0-9); NEUT # 8.9 x10^3uL (1.8-7.7); NEUT % 74 % (31-73); PLATELET COUNT 208 x10^3/uL (140-400); RED BLOOD COUNT 4.74 x10^6/uL (4.30-5.70); RED CELL DISTRIBUTION WIDTH 13.5 % (11.5-14.5); WHITE BLOOD COUNT 11.9 x10^3/uL (4.0-11.0)
[2019-12-19 17:34] LABS: CALCIUM 9.2 mg/dL (8.5-10.1); CREATININE 1.2 mg/dL (0.7-1.3); GFR 62.9; POTASSIUM 3.9 mmol/L (3.5-5.1)
--- NOTE | 2019-12-19 17:36 | RAD ---
PQRS Compliance Statement: One or more of the following individualized dose reduction techniques were utilized for this examination: 1. Automated exposure control 2. Adjustment of the mA and/or kV according to patient size 3. Use of iterative reconstruction technique CT PELVIS W/CONTRAST 12/19/2019 4:45 PM Indication: Perirectal mass COMPARISON: Ultrasound 12/19/2019 TECHNIQUE: Multiple axial CT images of the pelvis are obtained after intravenous administration of nonionic contrast. Coronal and sagittal reformats are provided. FINDINGS: There is a 4.5 or 1.7 x 2.4 cm rim-enhancing collection along the posterior margin of the right scrotum with associated skin thickening. Extensive edema extending to the right perineum. There is no involvement of the anus, internal or external anal sphincters. The testicles appear separate from this process as does the penis. No significant pathologically enlarged pelvic lymph nodes are identified. Inferior pole left renal cyst measures 7.0 cm. Small large bowel are normal in caliber. Mild colonic diverticulosis without adjacent inflammation. Appendix is normal in appearance. Urinary bladder is within normal limits given degree of distention. Prostate and seminal vesicles are normal. No suspicious osseous normality is identified. IMPRESSION: 1. Rim-enhancing fluid collection is identified along the posterior right scrotal wall with extension to the perineum without involvement of the anus. Findings are suspicious for abscess development although there is no gas identified within this collection. Correlate with any localized signs and symptoms of infection. Overlying cellulitis is considered. Electronically signed by: Dee Motta MD (12/19/2019 5:34 PM) [facility]
[2019-12-19 17:39] LABS: ALBUMIN 3.8 g/dL (3.4-5.0); ALBUMIN/GLOBULIN RATIO 1.1 (1.0-1.7); TOTAL BILIRUBIN 0.5 mg/dL (0.2-1.0); TOTAL PROTEIN 7.3 g/dL (6.4-8.2)
[2019-12-19] MEDS ORDERED: SULF1TAB24 PO (17:58)
[2019-12-19] MEDS ORDERED: HYDR-3165 PO (17:58)
[2019-12-19 18:09] VITALS: BP 127/88
== END 2019-12-19 18:15 | disposition home or self-care (01) ==
LOC: ER 15:23
DX: N50.89 Other specified disorders of the male genital organs (principal); K21.9 Gastro-esophageal reflux disease without esophagitis; I10 Essential (primary) hypertension; F17.210 Nicotine dependence, cigarettes, uncomplicated
CPT/HCPCS: 36415; 72193; 76881; 80053; 83605; 85025; 99285; Q9967

== ENCOUNTER → 2020-02-23 | Outpatient (CLI) | payer BC ==
[~2020-02-23] MED LIST changes: +HYDR-3165 PO; +IOHEXOL 240 MG/ML 50ML VIAL. PO ONE; +IOHEXOL 300 MG/ML 75 ML VIAL. IV ONE; +SULF1TAB24 PO
--- NOTE | 2020-02-23 09:53 | RAD ---
EXAM: CT Abdomen and Pelvis with IV contrast CLINICAL HISTORY: SUPRAPUBIC ABDOMINAL PAIN, HERNIA SURGERY, KIDNEY STONES IN PAST COMPARISON: none TECHNIQUE: Helical CT of the abdomen and pelvis was performed following the administration of IV contrast. Axial, coronal and sagittal reformatted images were generated. ---PQRS compliance statement - One or more of the following individualized dose reduction techniques were utilized for this study: 1. Automated exposure control 2. Adjustment of the mA and/or kV according to patient size 3. Use of iterative reconstruction technique--- FINDINGS: Lower chest: Linear opacities in the lingula likely scarring/atelectasis. Abdomen and pelvis: Liver and biliary system: No focal liver lesion. Hepatic hypoattenuation likely fatty liver. Gallbladder is normal. No biliary ductal dilatation. Spleen: Unremarkable Pancreas: Unremarkable Adrenal glands: Unremarkable Kidneys: Symmetric nephrograms. Nonobstructing right lower pole renal calculus. A left midlower pole renal cyst is seen measuring approximately 7.7 cm. No hydronephrosis or hydroureter. Lymph nodes/retroperitoneum: No abdominal or pelvic lymphadenopathy. Vessels: Retroaortic left renal vein. Atherosclerotic calcifications of aorta and iliacs as well as main branches. Bowel/Peritoneal cavity: Moderate colonic stool content is seen. Appendix is normal. No small or large bowel dilatation. No bowel obstruction. Colonic diverticulosis particularly in the sigmoid colon with mild infiltration about several of these diverticula, some of which abut the bladder dome. Appendix is normal. No abdominal or pelvic ascites. Abdominal wall: Unremarkable Bladder: Unremarkable Bones: No aggressive osseous lesion is seen. IMPRESSION: 1. Infiltration about sigmoid diverticula consistent with acute diverticulitis. No associated loculated fluid collection or evidence for perforation. 2. Mild hepatic hypoattenuation likely fatty liver. 3. Appendix is normal. Electronically signed by: Michi Beckwith MD (02/23/2020 9:50 AM) [facility]
== END | disposition home or self-care (01) ==
LOC: CT 08:04
PROVIDERS: ATTEND Family Medicine
DX: K57.30 Diverticulosis of large intestine without perforation or abscess without bleeding (principal); N28.1 Cyst of kidney, acquired; N20.0 Calculus of kidney; K76.0 Fatty (change of) liver, not elsewhere classified; I70.0 Atherosclerosis of aorta; I70.8 Atherosclerosis of other arteries; Z87.442 Personal history of urinary calculi
CPT/HCPCS: 74177; Q9966; Q9967

== ENCOUNTER → 2021-03-03 | Outpatient (CLI) | payer BC ==
[~2021-03-03] MED LIST changes: -IOHEXOL 240 MG/ML 50ML VIAL. PO ONE; -IOHEXOL 300 MG/ML 75 ML VIAL. IV ONE
--- NOTE | 2021-03-03 13:56 | RAD ---
EXAM: XR KNEE_RT 1-2 VIEWS. HISTORY: Right knee pain. COMPARISON: None. FINDINGS: No fractures are identified. Joint spaces and alignment are maintained. There is no joint e ffusion. IMPRESSION: 1. No clear degenerative change for patient age. Electronically signed by: Chantal Reed MD (03/03/2021 1:54 PM) [id number]
== END ==
LOC: RAD 09:56
PROVIDERS: ATTEND Family Medicine
DX: M25.561 Pain in right knee (principal)
CPT/HCPCS: 73560

== ENCOUNTER 2021-09-25 11:19 | Emergency (ER) | payer BC, OTHER ==
[~2021-09-25] VITALS: Ht 185.4 cm; Wt 122.3 kg
[2021-09-25] MEDS ORDERED: NITROGLYCERIN SUBLINGUAL 0.4 MG BOTTLE OF 25. SL PRN (11:45)
[2021-09-25] MEDS ORDERED: ASPIRIN CHEWABLE 81 MG TABLET. PO ONE (11:45)
[2021-09-25 12:00] LABS: BASO # 0.1 x10^3/uL (0.0-0.2); BASO % 1 % (0-3); EOS # 0.2 x10^3/uL (0.0-0.7); EOS % 2 % (0-3); HEMATOCRIT 50.7 % (39.0-53.0); HEMOGLOBIN 17.5 g/dL (13.0-17.5); LYMPH # 1.9 x10^3/uL (1.0-4.8); LYMPH % 22 % (24-48); MEAN CORPUSCULAR HEMOGLOBIN 35 pg (25-35); MEAN CORPUSCULAR HGB CONC 34 g/dL (31-37); MEAN CORPUSCULAR VOLUME 103 fL (79-100); MONO # 0.6 x10^3/uL (0.0-1.1); MONO % 7 % (0-9); NEUT # 5.7 x10^3uL (1.8-7.7); NEUT % 68 % (31-73); PLATELET COUNT 223 x10^3/uL (140-400); RED BLOOD COUNT 4.95 x10^6/uL (4.30-5.70); WHITE BLOOD COUNT 8.4 x10^3/uL (4.0-11.0)
--- NOTE | 2021-09-25 12:02 | PHYS DOC ---
Past History Past Medical History: GERD, Hypertension (NUBIA ENG APRN) Past Surgical History: No Surgical History (NUBIA ENG APRN) Smoking: Cigarettes Alcohol Use: None Drug Use: None (NUBIA ENG APRN) General Adult EDM: Chief Complaint: CHEST PAIN HPI: HPI: Patient is a 56-year-old male who presents to the emergency department today for midsternal to left-sided chest pain that started 30 minutes prior to arrival after he got an argument with his stepson. Patient reports that his pain does not radiate. No alleviating or aggravating factors. No treatment prior to arrival. Patient rates his pain 7 out of 10 and describes it as a sharp stabbing pain. Patient has a history of GERD, hypertension and is a current smoker. He reports that he is seeing Dr. Giron before and had a cardiac cath in the last year that was negative per patient. Patient reports that he was prescribed antihypertensive medications but his blood pressure was better so he was taken off of the medications. Patient's blood pressure is elevated today at 192/100. He denies any nausea, vomiting, cough, shortness of breath. (NUBIA ENG APRN) Review of Systems: Review of Systems: Respiratory: See HPI Cardiovascular: See HPI GI: See HPI Psychiatric: See HPI (NUBIA ENG APRN) Current Medications: Current Meds: Current Medications Medications (Trade) Dose Ordered Sig/[facility] Start Time Stop Time Status Last Admin Dose Admin Aspirin (Aspirin Chewable) 324 mg 1X ONCE 09/25/21 11:45 09/25/21 11:46 DC 09/25/21 11:49 324 MG Nitroglycerin (Nitrostat) 0.4 mg PRN Q5MIN PRN 09/25/21 11:45 09/26/21 11:44 09/25/21 11:50 0.4 MG (NUBIA ENG APRN) Allergies: Allergies: Allergies Coded Allergies Type Severity Reaction Last Updated Verified No Known Drug Allergies 07/21/15 No (NUBIA ENG APRN) Physical Exam: PE: Constitutional: Well developed, well nourished, no acute distress, non-toxic appearance. [] HENT: Normocephalic, atraumatic, bilateral external ears normal, oropharynx moist, no oral exudates, nose normal. [] Eyes: PERRL, EOMI, conjunctiva normal, no discharge. [] Neck: Normal range of motion, no stridor Cardiovascular:Heart rate regular rhythm, no murmur, chest pain is not reproducible with palpation [] Lungs & Thorax: Bilateral breath sounds clear to auscultation [] Abdomen: Bowel sounds normal, soft, no tenderness, obese, no masses, no pulsatile masses. [] Skin: Warm, dry, no erythema, no rash. [] Back: Normal range of motion Extremities: No tenderness, no cyanosis, no clubbing, ROM intact, no edema. [] Neurologic: Alert and oriented X 3, normal motor function, normal sensory function, no focal deficits noted. [] Psychologic: Affect normal, judgement normal, mood normal. [] (NUBIA ENG RESOURCE RECOVERY SPECIALIST) Current Patient Data: Labs: Laboratory Tests Test 09/25/21 11:35 White Blood Count 8.4 x10^3/uL Red Blood Count 4.95 x10^6/uL Hemoglobin 17.5 g/dL Hematocrit 50.7 % Mean Corpuscular Volume 103 fL Mean Corpuscular Hemoglobin 35 pg Mean Corpuscular Hemoglobin Concent 34 g/dL Red Cell Distribution Width 14.0 % Platelet Count 223 x10^3/uL Neutrophils (%) (Auto) 68 % Lymphocytes (%) (Auto) 22 % Monocytes (%) (Auto) 7 % Eosinophils (%) (Auto) 2 % Basophils (%) (Auto) 1 % Neutrophils # (Auto) 5.7 x10^3uL Lymphocytes # (Auto) 1.9 x10^3/uL Monocytes # (Auto) 0.6 x10^3/uL Eosinophils # (Auto) 0.2 x10^3/uL Basophils # (Auto) 0.1 x10^3/uL Sodium Level 140 mmol/L Potassium Level 4.2 mmol/L Chloride Level 103 mmol/L Carbon Dioxide Level 25 mmol/L Anion Gap 12 Blood Urea Nitrogen 14 mg/dL Creatinine 1.3 mg/dL Estimated GFR (Cockcroft-Gault) 56.9 BUN/Creatinine Ratio 11 Glucose Level 134 mg/dL Calcium Level 9.6 mg/dL Total Bilirubin 0.3 mg/dL Aspartate Amino Transf (AST/SGOT) 16 U/L Alanine Aminotransferase (ALT/SGPT) 32 U/L Alkaline Phosphatase 107 U/L Troponin I High Sensitivity 23 ng/L Total Protein 7.1 g/dL Albumin 4.0 g/dL Albumin/Globulin Ratio 1.3 Current Medications Medications (Trade) Dose Ordered Sig/Brandon Route PRN Reason Start Time Stop Time Status Last Admin Dose Admin Aspirin (Aspirin Chewable) 324 mg 1X ONCE PO 09/25/21 11:45 09/25/21 11:46 DC 09/25/21 11:49 Nitroglycerin (Nitrostat) 0.4 mg PRN Q5MIN PRN SL CP RATING > 1/10 09/25/21 11:45 09/26/21 11:44 09/25/21 11:50 Morphine Sulfate (Morphine 2mg Syringe) 2 mg 1X ONCE IV 09/25/21 13:00 09/25/21 13:01 DC 09/25/21 13:02 Vital Signs: Vital Signs Date Time Temp Pulse Resp B/P (MAP) Pulse Ox O2 Delivery O2 Flow Rate FiO2 09/25/21 11:50 80 191/102 (NUBIA ENG APRN) EKG: EKG: EKG performed by ER staff at 1130 shows sinus rhythm with a rate of 85, QTC is 427, no STEMI read by Dr. Ulloa at 1130. [] EKg repeat at 1446 shows sr with stemi in lateral leads read by Dr. Ulloa at 1447 (NUBIA ENG APRN) Radiology/Procedures: Radiology/Procedures: []PROCEDURE: PORTABLE CHEST 1V Study: XR CHEST 1V Indication: Chest pain. Comparison: 10/24/2016 Findings: Similar configuration of the cardiomediastinal silhouette and denice. Mild atelectasis at the right more so than left lung bases. No confluent infiltrate, pleural effusion or pneumothorax. Impression: No acute radiographic abnormality of the chest. Mild right more so than left basilar volume loss. Electronically signed by: DEBRA JOSEPH MD (09/25/2021 12:14 PM) [facility] DICTATED AND SIGNED BY: DEBRA JOSEPH MD DATE: 09/25/21 1213 CC: NUBIA ENG APRN; KAYLYNN VALERIO MD ~MTH0 0 (NUBIA ENG APRN) Heart Score: C/O Chest Pain: Yes HEART Score for Chest Pain: HEART Score for Chest Pain Response (Comments) Value History Slighlty/Non-Suspicious 0 ECG Nonspecific Repolarizatio 1 Age >45 - < 65 1 Risk Factors >3 Risk Factors or Hx CAD 2 Total 4 Risk Factors: Risk Factors: DM, Current or recent (<one month) smoker, HTN, HLP, family history of CAD, obesity. Risk Scores: Score 0 - 3: 2.5% MACE over next 6 weeks - Discharge Home Score 4 - 6: 20.3% MACE over next 6 weeks - Admit for Clinical Observation Score 7 - 10: 72.7% MACE over next 6 weeks - Early Invasive Strategies (NUBIA ENG RESOURCE RECOVERY SPECIALIST) Course & Med Decision Making: Course & Med Decision Making Pertinent Labs and Imaging studies reviewed. (See chart for details) [] Patient presents to the emergency department for midsternal and left-sided chest pain that started 30 minutes ago after getting into a verbal argument with his stepson. Patient's risk factors are hypertension, smoker and obesity. He reports that he had a negative cardiac catheterization last year by Dr. Giron. Patient does not take any blood pressure medication. Patient's blood pressure is elevated today at 192/100. Work-up in the ER consisted of blood work, EKG, chest x-ray. He was treated with aspirin and nitroglycerin. Patient's EKG does have some nonspecific changes he does have elevation without reciprocal changes.Patients heart score is 4 therefore, I would like to admit him for serial troponins and cardiology consultation. I discussed patients case with Dr. Rider who would like patient transferred to [facility]. Patient does not want to be admitted to [facility] and would like to be transferred to [facility]. I discussed patients case with Dr. Nelson at [facility] who agreed to accept the patient. Patient will be transferred to [facility]. Patient reports that he wants to wait until his second repeat troponin before he is transferred because if it is not elevated he is going to leave against medical advice. Supervising physician notified. Repeat troponin is elevated, repeat ekg shows STEMI. Heparin protocol ordered. [facility] notified. To be transferred to [facility]. Patient notified of result. EMS contacted for patient transport. (NUBIA ENG APRN) Dragon Disclaimer: Dragon Disclaimer: This electronic medical record was generated, in whole or in part, using a voice recognition dictation system. (NUBIA ENG APRN) Attending Co-Sign The patient was seen and interviewed as well as examined at the bedside. The chart was reviewed. The case was discussed. Agree with the plan of care. (MAI ULLOA DO) Departure Departure: Impression: Primary Impression: STEMI (ST elevation myocardial infarction) Qualified Codes: I21.3 - ST elevation (STEMI) myocardial infarction of unspecified site Disposition: 02 SHORT TERM HOSPITAL Condition: STABLE Referrals: KAYLYNN VALERIO MD (PCP) NUBIA ENG APRN Sep 25, 2021 12:02 MAI ULLOA DO Sep 26, 2021 11:22
[2021-09-25 12:10] LABS: CALCIUM 9.6 mg/dL (8.5-10.1); CREATININE 1.3 mg/dL (0.7-1.3); GFR 56.9; POTASSIUM 4.2 mmol/L (3.5-5.1)
[2021-09-25 12:16] LABS: ALBUMIN/GLOBULIN RATIO 1.3 (1.0-1.7); TOTAL BILIRUBIN 0.3 mg/dL (0.2-1.0); TOTAL PROTEIN 7.1 g/dL (6.4-8.2)
--- NOTE | 2021-09-25 12:17 | RAD ---
Study: XR CHEST 1V Indication: Chest pain. Comparison: 10/24/2016 Findings: Similar configuration of the cardiomediastinal silhouette and denice. Mild atelectasis at the right mor e so than left lung bases. No confluent infiltrate, pleural effusion or pneumothorax. Impression: No acute radiographic abnormality of the chest. Mild right more so than left basilar volume loss. Electronically signed by: DEBRA JOSEPH MD (09/25/2021 12:14 PM) [facility]
--- NOTE | 2021-09-25 12:37 | EKG ---
[address] [address] Test Date: 2021-09-25 Test Time: 11:30:46 Pat Name: MYESHA BOONE Department: Room: Gender: M Professor Of Business: : 1965 Requested By: NUBIA ENG Order Number: [id number] Reading MD: Nate Giron MD Measurements Intervals Max Rate: 85 P: 65 MO: 172 QRS: 46 QRSD: 78 T: 62 QT: 354 QTc: 427 Interpretive Statements SINUS RHYTHM Electronically Signed On 09-26-2021 9:53:27 DIGITAL MARKETING INTERN by Nate Giron MD
[2021-09-25] MEDS ORDERED: MORPHINE SULFATE 2 MG/ML DISP.SYRIN. IV ONE (13:00)
[2021-09-25 14:50] VITALS: BP 145/89
[2021-09-25] MEDS ORDERED: HEPARIN for SUB-Q USE 5,000 UNIT/ML VIAL. SQ ONE (14:54)
[2021-09-25] MEDS ORDERED: HEPARIN for IV BOLUS 10,000 UNIT/10 ML VIAL. IV ONE (15:00)
[2021-09-25] MEDS ORDERED: HEPARIN 25,000UTS/250ML PREMIX 250 ML IV PRN (15:00)
[2021-09-25] MEDS ORDERED: HEPARIN for IV BOLUS 10,000 UNIT/10 ML VIAL. IV PRN (15:00)
--- NOTE | 2021-09-25 16:05 | EKG ---
[address] [address] Test Date: 2021-09-25 Test Time: 14:46:21 Pat Name: MYESHA BOONE Department: Room: Gender: M Banquet Chef: RODRI : 1965 Requested By: NUBIA ENG Order Number: [id number] Reading MD: Nate Giron MD Measurements Intervals [place] Rate: 64 P: 60 NH: 176 QRS: 34 QRSD: 80 T: 49 QT: 394 QTc: 406 Interpretive Statements SINUS RHYTHM ST & T ABNORMALITY, CONSIDER RECENT ISCHEMIA Electronically Signed On 09-26-2021 9:49:03 NAIL WELTER by Nate Giron MD
== END 2021-09-25 15:11 | disposition short-term general hospital (02) ==
LOC: ER 11:19
DX: I21.3 ST elevation (STEMI) myocardial infarction of unspecified site (principal); K21.9 Gastro-esophageal reflux disease without esophagitis; I10 Essential (primary) hypertension; F17.210 Nicotine dependence, cigarettes, uncomplicated
CPT/HCPCS: 36415; 71045; 80053; 84484; 85025; 93005; 96374; 96375; 99285; J1644; J2270